=== PATIENT | female | born 1950 | race Caucasian/White ===

== ENCOUNTER 2017-05-11 09:54 | Emergency (ER) | payer OTHER, MEDICARE ==
[~2017-05-11] VITALS: Ht 152.4 cm; Wt 63.6 kg
[~2017-05-11 09:54] MED LIST: CALCIUM 500 +1 EACH PO; DOCUSATE SODIU100 MG PO; FISH OIL500 MG PO; HYDROCODON-ACE1 EAC7 PO; LO-DOSE ASPIRIN81 M2 PO; MOTRIN600 MG PO
[2017-05-11 12:21] LABS: HEMATOCRIT 44.2 % (36.0-46.0); MCHC 33.3 G/DL (30.0-36.0); MCV 99.3 FL (83-99); PLATELET COUNT 188 K/uL (156-360); RBC DIS.WIDTH-CV 12.3 % (11.8-14.6); RED BLOOD COUNT 4.45 M/uL (3.80-5.20); WHITE BLOOD COUNT 8.7 K/uL (4.1-10.2)
[2017-05-11 12:34] LABS: CHLORIDE 103 mEq/L (99-109); SODIUM 137 mEq/L (136-147)
[2017-05-11 12:36] LABS: GLUCOSE 113 mg/dL (70-99)
[2017-05-11 12:38] LABS: ANION GAP 12 MEQ/L (2-14)
[2017-05-11 12:40] LABS: ALKALINE PHOSPHATASE 66 IU/L (3-129); GFR ESTIMATE (CALCULATED) > 59 mL/min/
[2017-05-11 12:41] LABS: UREA NITROGEN (BUN) 10 mg/dL (9-23)
[2017-05-11] MEDS ORDERED: PREDNISONE10 MG PO (12:45)
[2017-05-11 12:59] VITALS: BP 136/74
== END 2017-05-11 13:01 | disposition home or self-care (01) ==
LOC: EME 09:54
PROVIDERS: Nurse Practitioner Family
DX: M10.9 Gout, unspecified (principal); Z91.040 Latex allergy status; Z88.2 Allergy status to sulfonamides; Z87.891 Personal history of nicotine dependence
CPT/HCPCS: 73110; 73564; 80053; 85027; 99281; 99284

== ENCOUNTER 2017-07-03 21:35 | Inpatient (IN) | payer OTHER, MEDICARE ==
[~2017-07-03] VITALS: Ht 152.4 cm; Wt 62.1 kg
[~2017-07-03 21:35] MED LIST changes: +PREDNISONE10 MG PO
[2017-07-04 08:05] VITALS: BP 137/65
[2017-07-04 15:53] VITALS: BP 140/70
[2017-07-04 17:16] LABS: HEMATOCRIT 41.5 % (36.0-46.0); MCH 34.3 PG (29.0-34.0); MCHC 33.5 G/DL (30.0-36.0); MCV 102.5 FL (83-99); PLATELET COUNT 179 K/uL (156-360); RBC DIS.WIDTH-CV 13.1 % (11.8-14.6); RBC DIS.WIDTH-SD 49.9 % (39-53); RED BLOOD COUNT 4.05 M/uL (3.80-5.20); WHITE BLOOD COUNT 10.4 K/uL (4.1-10.2)
[2017-07-04 17:39] LABS: ANION GAP 8 MEQ/L (2-14); CHLORIDE 106 MEQ/L (99-109); GFR ESTIMATE (CALCULATED) > 59 mL/min/; GLUCOSE 201 mg/dL (70-99); POTASSIUM 3.7 MEQ/L (3.7-5.4); SAMPLE HEMOLYSIS CHECK 0; SAMPLE ICTERIC CHECK 0; SAMPLE LIPEMIA CHECK 0; SODIUM 137 MEQ/L (136-147); UREA NITROGEN (BUN) 11 mg/dL (9-23)
[2017-07-04 20:08] VITALS: BP 152/62
[2017-07-05] VITALS (7 sets, daily range): BP systolic 107–145; BP diastolic 56–78
[2017-07-05 07:59] LABS: HEMATOCRIT 39.1 % (36.0-46.0); MCH 34.1 PG (29.0-34.0); MCHC 33.5 G/DL (30.0-36.0); MCV 101.8 FL (83-99); MEAN PLAT.VOLUME 11.4 uM^3 (9.5-12.4); PLATELET COUNT 185 K/uL (156-360); RBC DIS.WIDTH-CV 13.2 % (11.8-14.6); RBC DIS.WIDTH-SD 49.4 % (39-53); RED BLOOD COUNT 3.84 M/uL (3.80-5.20); WHITE BLOOD COUNT 9.7 K/uL (4.1-10.2)
[2017-07-05 08:32] LABS: ANION GAP 8 MEQ/L (2-14); CHLORIDE 104 MEQ/L (99-109); GFR ESTIMATE (CALCULATED) > 59 mL/min/; GLUCOSE 100 mg/dL (70-99); POTASSIUM 3.9 MEQ/L (3.7-5.4); SAMPLE HEMOLYSIS CHECK 0; SAMPLE ICTERIC CHECK 0; SAMPLE LIPEMIA CHECK 0; SODIUM 138 MEQ/L (136-147); UREA NITROGEN (BUN) 10 mg/dL (9-23)
[2017-07-06 03:45] VITALS: BP 148/68
[2017-07-06 07:07] LABS: HEMATOCRIT 38.2 % (36.0-46.0); MCH 33.2 PG (29.0-34.0); MCV 100.5 FL (83-99); MEAN PLAT.VOLUME 11.3 uM^3 (9.5-12.4); PLATELET COUNT 164 K/uL (156-360); RBC DIS.WIDTH-CV 13.2 % (11.8-14.6); WHITE BLOOD COUNT 7.5 K/uL (4.1-10.2)
[2017-07-06 07:31] LABS: ANION GAP 7 MEQ/L (2-14); CHLORIDE 108 MEQ/L (99-109); GFR ESTIMATE (CALCULATED) > 59 mL/min/; GLUCOSE 100 mg/dL (70-99); POTASSIUM 3.9 MEQ/L (3.7-5.4); SAMPLE HEMOLYSIS CHECK 0; SAMPLE ICTERIC CHECK 0; SAMPLE LIPEMIA CHECK 0; SODIUM 141 MEQ/L (136-147); UREA NITROGEN (BUN) 7 mg/dL (9-23)
[2017-07-06 07:35] VITALS: BP 146/71
[2017-07-06] MEDS ORDERED: TRAMADOL HCL50 MG PO (08:39)
== END 2017-07-06 08:55 | disposition home or self-care (01) | DRG 748 ==
LOC: ENRESERV 21:35 → 2SOUTH 07-04 07:28 → ENRESERV 07-04 12:50 → 2EAST 07-04 15:40
PROVIDERS: Obstetrics & Gynecology Gynecologic Oncology
DX: N81.3 Complete uterovaginal prolapse (principal); D49.0 Neoplasm of unspecified behavior of digestive system; R32 Unspecified urinary incontinence; R33.9 Retention of urine, unspecified; Z79.82 Long term (current) use of aspirin; Z88.2 Allergy status to sulfonamides; Z87.891 Personal history of nicotine dependence; Z91.040 Latex allergy status
CPT/HCPCS: 36415; 80048; 85027; 86850; 86900; 86901; 86920; 88304; 94799; C1781; J0131; J0690; J1100; J1650; J1885; J2250; J2405; J2765; J3010